=== PATIENT | female | born 2000 | race Two or more races ===

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

== ENCOUNTER 2022-04-19 12:30 | Outpatient (CLI) | payer MEDICAID | END 2022-04-19 12:45 | disposition home or self-care (01) | LOC: LAB.N 12:30 | PROVIDERS: ATTEND Physician Assistant | DX: Z11.1 Encounter for screening for respiratory tuberculosis (principal) | CPT/HCPCS: 81599; 86480 ==